=== PATIENT | male | born 1960 | race Caucasian/White ===

== ENCOUNTER 2017-05-02 13:40 | Emergency (ER) | payer BC, OTHER ==
[~2017-05-02] VITALS: Ht 177.8 cm; Wt 100.0 kg
[2017-05-02 13:42] VITALS: BP 160/102; PULSE 97; RESP 17; TEMP 98.2; O2SAT 99
[2017-05-02] MEDS ORDERED: SODIUM CHLOR 0.9% 1000 ML INJ 1,000 ML IV SCH (14:01)
--- NOTE | 2017-05-02 14:11 | PD ---
HPI Chief Complaint: Flank/Kidney Pain Time Seen by Provider: 13:51 Travel History International Travel<30 days: No Contact w/Intl Traveler<30days: No Traveled to known affect area: No History of Present Illness HPI The patient is a 57-year-old male who presents emergency to the department for right flank pain. The patient states he developed right mid back pain and right flank yesterday. The patient is had some nausea with a few episodes of vomiting associated with a right flank pain. He also complains of mild diaphoresis secondary to the pain. He does have a history of a "clogged bile duct "several years ago, however, did not need a subsequent cholecystectomy per his report. He denies any dysuria, frequency, urgency, or hematuria. He denies any previous abdominal surgeries. Symptoms are moderate without any known alleviating or exacerbating factors. The patient does state he ate a lot of pastrami and cheese prior to the onset of his symptoms. [facility] Past Medical History Medical History: Denies Significant Hx Past Surgical History Surgical History: No Previous Surgery Social History Tobacco Use: Yes Allergies-Medications (Allergen,Severity, Reaction): Coded Allergies: No Known Allergies (Unverified , 05/02/17) Review of Systems Except as stated in HPI: all other systems reviewed are Neg General / Constitutional: No: Fever Cardiovascular: No: Chest Pain or Discomfort Respiratory: No: Shortness of Breath Gastrointestinal: Positive: Nausea, Vomiting, No: Diarrhea, Abdominal Pain Genitourinary: Positive: Flank Pain, No: Urgency, Frequency, Dysuria, Hematuria Skin: No Rash Physical Exam Narrative GENERAL: Awake, alert, pleasant 57-year-old male who appears his stated age and is in no acute respiratory distress. SKIN: Focused skin assessment warm/dry. HEAD: Atraumatic. Normocephalic. EYES: Pupils equal and round. No scleral icterus. No injection or drainage. ENT: No nasal bleeding or discharge. Breath smells of tobacco. NECK: Trachea midline. No JVD. CARDIOVASCULAR: Regular rate and rhythm. No murmur appreciated. Heart rate in the 90s. RESPIRATORY: No accessory muscle use. Clear to auscultation. Breath sounds equal bilaterally. GASTROINTESTINAL: Abdomen soft, non-tender, nondistended. Negative Holbrook's. Negative McBurney's. Back: Mild right CVA tenderness. MUSCULOSKELETAL: No obvious deformities. No clubbing. No cyanosis. No edema. NEUROLOGICAL: Awake and alert. No obvious cranial nerve deficits. Motor grossly within normal limits. Normal speech. PSYCHIATRIC: Appropriate mood and affect; insight and judgment normal. Data Data Last Documented VS Vital Signs Date Time Temp Pulse Resp B/P Pulse Ox O2 Delivery O2 Flow Rate FiO2 05/02/17 13:42 98.2 97 17 160/102 99 Orders Complete Blood Count With Diff (05/02/17 14:01) Comprehensive Metabolic Panel (05/02/17 14:01) Lipase (05/02/17 14:01) Urinalysis - C+S If Indicated (05/02/17 14:01) Ct Abd/Pel W/O Iv Contrast (05/02/17 14:01) Iv Access Insert/Monitor (05/02/17 14:01) Ecg Monitoring (05/02/17 14:01) Oximetry (05/02/17 14:01) Morphine Inj (Morphine Inj) (05/02/17 14:15) Ondansetron Inj (Zofran Inj) (05/02/17 14:15) Sodium Chlor 0.9% 1000 Ml Inj (Ns 1000 M (05/02/17 14:01) Sodium Chloride 0.9% Flush (Ns Flush) (05/02/17 14:15) Ketorolac Inj (Toradol Inj) (05/02/17 14:15) Labs Laboratory Tests Test 05/02/17 14:00 White Blood Count 11.4 TH/MM3 Red Blood Count 5.19 MIL/MM3 Hemoglobin 18.3 GM/DL Hematocrit 51.2 % Mean Corpuscular Volume 98.7 FL Mean Corpuscular Hemoglobin 35.2 PG Mean Corpuscular Hemoglobin 35.6 % Concent Red Cell Distribution Width 13.9 % Platelet Count 137 TH/MM3 Mean Platelet Volume 9.0 FL Neutrophils (%) (Auto) 70.7 % Lymphocytes (%) (Auto) 17.9 % Monocytes (%) (Auto) 9.9 % Eosinophils (%) (Auto) 0.9 % Basophils (%) (Auto) 0.6 % Neutrophils # (Auto) 8.0 TH/MM3 Lymphocytes # (Auto) 2.0 TH/MM3 Monocytes # (Auto) 1.1 TH/MM3 Eosinophils # (Auto) 0.1 TH/MM3 Basophils # (Auto) 0.1 TH/MM3 CBC Comment DIFF FINAL Differential Comment Urine Color YELLOW Urine Turbidity CLEAR Urine pH 6.5 Urine Specific [place] 1.021 Urine Protein 30 mg/dL Urine Glucose (UA) NEG mg/dL Urine Ketones NEG mg/dL Urine Occult Blood MOD Urine Nitrite NEG Urine Bilirubin NEG Urine Urobilinogen 4.0 MG/DL Urine Leukocyte Esterase NEG Urine RBC 86 /hpf Urine WBC 4 /hpf Urine Bacteria RARE /hpf Urine Mucus FEW /lpf Microscopic Urinalysis Comment CULT NOT INDICATED Sodium Level 137 MEQ/L Potassium Level 3.6 MEQ/L Chloride Level 103 MEQ/L Carbon Dioxide Level 23.5 MEQ/L Anion Gap 11 MEQ/L Blood Urea Nitrogen 11 MG/DL Creatinine 1.12 MG/DL Estimat Glomerular Filtration 67 ML/MIN Rate Random Glucose 107 MG/DL Calcium Level 8.9 MG/DL Total Bilirubin 1.2 MG/DL Aspartate Amino Transf 16 U/L (AST/SGOT) Alanine Aminotransferase 32 U/L (ALT/SGPT) Alkaline Phosphatase 98 U/L Total Protein 7.3 GM/DL Albumin 3.8 GM/DL Lipase 100 U/L [facility] Medical Decision Making Medical Screen Exam Complete: Yes Emergency Medical Condition: Yes Medical Record Reviewed: Yes Interpretation(s) Laboratory Tests Test 05/02/17 14:00 White Blood Count 11.4 TH/MM3 Red Blood Count 5.19 MIL/MM3 Hemoglobin 18.3 GM/DL Hematocrit 51.2 % Mean Corpuscular Volume 98.7 FL Mean Corpuscular Hemoglobin 35.2 PG Mean Corpuscular Hemoglobin 35.6 % Concent Red Cell Distribution Width 13.9 % Platelet Count 137 TH/MM3 Mean Platelet Volume 9.0 FL Neutrophils (%) (Auto) 70.7 % Lymphocytes (%) (Auto) 17.9 % Monocytes (%) (Auto) 9.9 % Eosinophils (%) (Auto) 0.9 % Basophils (%) (Auto) 0.6 % Neutrophils # (Auto) 8.0 TH/MM3 Lymphocytes # (Auto) 2.0 TH/MM3 Monocytes # (Auto) 1.1 TH/MM3 Eosinophils # (Auto) 0.1 TH/MM3 Basophils # (Auto) 0.1 TH/MM3 CBC Comment DIFF FINAL Differential Comment Urine Color YELLOW Urine Turbidity CLEAR Urine pH 6.5 Urine Specific [place] 1.021 Urine Protein 30 mg/dL Urine Glucose (UA) NEG mg/dL Urine Ketones NEG mg/dL Urine Occult Blood MOD Urine Nitrite NEG Urine Bilirubin NEG Urine Urobilinogen 4.0 MG/DL Urine Leukocyte Esterase NEG Urine RBC 86 /hpf Urine WBC 4 /hpf Urine Bacteria RARE /hpf Urine Mucus FEW /lpf Microscopic Urinalysis Comment CULT NOT INDICATED Sodium Level 137 MEQ/L Potassium Level 3.6 MEQ/L Chloride Level 103 MEQ/L Carbon Dioxide Level 23.5 MEQ/L Anion Gap 11 MEQ/L Blood Urea Nitrogen 11 MG/DL Creatinine 1.12 MG/DL Estimat Glomerular Filtration 67 ML/MIN Rate Random Glucose 107 MG/DL Calcium Level 8.9 MG/DL Total Bilirubin 1.2 MG/DL Aspartate Amino Transf 16 U/L (AST/SGOT) Alanine Aminotransferase 32 U/L (ALT/SGPT) Alkaline Phosphatase 98 U/L Total Protein 7.3 GM/DL Albumin 3.8 GM/DL Lipase 100 U/L CT of the abdomen and pelvis reveals small stones right renal pelvis. Perinephric stranding which suggests recently passed stone which is not visualized. There are no stones on the left. No other etiology for flank pain. Differential Diagnosis Differential diagnosis includes nephrolithiasis, pyelonephritis, hydronephrosis , biliary colic, cholecystitis, pancreatitis, lower lobe pneumonia, shingles. Narrative Course IV was established, labs were drawn and sent, and the patient was placed on cardiac telemetry monitoring and continuous pulse oximetry monitoring. The patient was administered morphine, Zofran, Toradol, and IV fluids. Noncontrast CT of the abdomen and pelvis was ordered. The patient's CBC has elevated white count and hemoglobin, most likely hemoconcentration secondary to dehydration. BUN and creatinine are unremarkable. UA reveals 86 RBCs with blood, consistent with hematuria. CT reveals right sided renal pelvis stones and perinephric standing suggesting a recently passed kidney stone which is not visualized. The patient will be discharged home on pain medications and is advised to follow -up with a primary physician and/or urologist if symptoms persist. Diagnosis Primary Impression: Right flank pain Additional Impressions: Nephrolithiasis Hematuria Qualified Code: R31.9 - Hematuria, unspecified type Patient Instructions: General Instructions Additional Instructions: Medications as directed. Follow-up with your primary physician. Follow-up with urology if symptoms persist. Med/Other Pt SpecificInfo: Prescription(s) given Scripts Ibuprofen 600 Mg [id number] Mg PO Q6H PRN (Pain/Inflammation) #20 TAB Ref 0 Prov:Lefty Guaman MD 05/02/17 Hydrocodone-Acetaminophen ([place])5-325 mg Tab1 Tab PO Q6H PRN (PAIN) #15 TAB Ref 0 Prov:Lefty Guaman MD 05/02/17 Tamsulosin (Flomax)0.4 Mg Cap0.4 Mg PO HS 7 Days Ref 0 Prov:Lefty Guaman MD 05/02/17 Disposition: 01 DISCHARGE HOME Condition: Stable Lefty Guaman MD May 02, 2017 14:11
[2017-05-02] MEDS ORDERED: KETOROLAC TROMETHAMINE 30 MG/ML (IVP) VIAL IVP ONE (14:15)
[2017-05-02] MEDS ORDERED: MORPHINE SULFATE 4 MG/ML INJ IV PUSH ONE (14:15)
[2017-05-02] MEDS ORDERED: ONDANSETRON HCL 4 MG/2 ML VIAL IVP ONE (14:15)
[2017-05-02] MEDS ORDERED: SODIUM CHLORIDE 0.9% FLUSH 10 ML FLUSH IV FLUSH PRN (14:15)
[2017-05-02 14:30] LABS: BASOPHIL # 0.1 TH/MM3 (0-0.2); BASOPHIL % 0.6 % (0.0-2.0); EOSINOPHIL # 0.1 TH/MM3 (0-0.4); EOSINOPHIL % 0.9 % (0.0-4.0); HEMATOCRIT 51.2 % (39.0-51.0); HEMO FLAGS DIFF FINAL; LYMPH % 17.9 % (9.0-44.0); MEAN CELL VOLUME 98.7 FL (80.0-100.0); MEAN CORPUSCULAR HEMOGLOBIN 35.2 PG (27.0-34.0); MEAN CORPUSCULAR HGB CONC 35.6 % (32.0-36.0); MONO % 9.9 % (0.0-8.0); NEUT % 70.7 % (16.0-70.0); PLATELET COUNT 137 TH/MM3 (150-450); RED BLOOD COUNT 5.19 MIL/MM3 (4.50-5.90); RED CELL DISTRIBUTION WIDTH 13.9 % (11.6-17.2); WHITE BLOOD COUNT 11.4 TH/MM3 (4.0-11.0)
[2017-05-02 14:34] LABS: BACTERIA, URINE RARE /hpf; BLOOD, URINE MOD (NEG); GLUCOSE,URINE NEG (NEG); KETONE, URINE NEG (NEG); MUCUS URINE FEW /lpf (OCC); NITRITE,URINE NEG (NEG); PH, URINE 6.5 (5.0-8.5); URINE COLOR YELLOW (YELLW/STRAW)
[2017-05-02 14:35] LABS: COMMENT (UR) CULT NOT INDICATED; CULTURE IF INDICATED CULT NOT INDICATED
[2017-05-02 14:54] LABS: ALT (GPT) 32 U/L (12-78); ANION GAP 11 MEQ/L (5-15); AST (GOT) 16 U/L (15-37); BICARBONATE 23.5 MEQ/L (21.0-32.0); BLOOD UREA NITROGEN 11 MG/DL (7-18); CHLORIDE 103 MEQ/L (98-107); GLOMERULAR FILTRATION RATE 67 ML/MIN (>89); POTASSIUM 3.6 MEQ/L (3.5-5.1); SODIUM (NA) 137 MEQ/L (136-145)
[2017-05-02 14:56] LABS: ALKALINE PHOSPHATASE 98 U/L (45-117); TOTAL BILIRUBIN ADULT 1.2 MG/DL (0.2-1.0)
--- NOTE | 2017-05-02 16:12 | RADRPT ---
EXAM DATE/TIME: 05/02/2017 15:53 [place] COMPARISON: No previous studies available for comparison. INDICATIONS : Right flank pain. ORAL CONTRAST: No oral contrast ingested. RADIATION DOSE: 13.88 CTDIvol (mGy) MEDICAL HISTORY : None SURGICAL HISTORY : None. ENCOUNTER: Initial ACUITY: 2 days PAIN SCALE: 6/10 LOCATION: Right flank TECHNIQUE: Volumetric scanning of the abdomen and pelvis was performed. Using automated exposure control and ad justment of the mA and/or kV according to patient size, radiation dose was kept as low as reasonably achievable to obtain optimal diagnostic quality images. DICOM format image data is available electro nically for review and comparison. FINDINGS: LOWER LUNGS: The visualized lower lungs are clear. LIVER: Homogeneous density without lesion. There is no dilation of the biliary tree. No calcified gallston es. SPLEEN: Normal size without lesion. PANCREAS: Within normal limits. KIDNEYS: Nonobstructing collection of stones in the right renal pelvis with mild prominence of the right urete r extending down to the bladder. I don't see an obstructing stone. He recently passed stone on the right would be consideration. There are no calcifications on the left. ADRENAL GLANDS: Within normal limits. VASCULAR: There is no aortic aneurysm. BOWEL/MESENTERY: The stomach, small bowel, and colon demonstrate no acute abnormality. There is no free intraperitone al air or fluid. ABDOMINAL WALL: Within normal limits. RETROPERITONEUM: There is no lymphadenopathy. BLADDER: No wall thickening or mass. REPRODUCTIVE: Scattered phleboliths are noted. INGUINAL: There is no lymphadenopathy or hernia. MUSCULOSKELETAL: Degenerative changes of the lumbar spine. CONCLUSION: Small stones right renal pelvis. Perinephric stranding which suggests recently passed stone which I cannot see. There are no stones on the left. No other etiology for flank pain. Lyle Tom MD FACR on May 02, 2017 at 16:08 Board Certified Radiologist. This report was verified electronically.
[2017-05-02] MEDS ORDERED: TAMS5CAP PO (16:22)
[2017-05-02] MEDS ORDERED: IBUP-232 PO (16:22)
[2017-05-02] MEDS ORDERED: NORC5TAB PO (16:22)
== END 2017-05-02 17:00 | disposition home or self-care (01) ==
LOC: NEPD 13:40
DX: N20.0 Calculus of kidney (principal); R31.9 Hematuria, unspecified
CPT/HCPCS: 74176; 80053; 81001; 83690; 85025; 96374; 96375; 99285; J1885; J2270; J2405; J7030